=== PATIENT | female | born 1965 | race Caucasian/White ===

== ENCOUNTER 2016-10-09 03:23 | Inpatient (IN) | payer BC, MEDICAID, OTHER ==
[2016-10-09] MEDS ORDERED: Sodium Chloride 0.9% 1,000 ML IV STA ×2 (03:33→06:23)
[2016-10-09] MEDS ORDERED: Iohexol 240 (50 ml) PO ONE (03:42)
--- NOTE | 2016-10-09 04:10 | ED PDOC ---
HPI: Abdomen Time Seen by Provider: 10/09/16 03:26 Chief Complaint (Nursing): GI Problem Chief Complaint (Provider): GI Problem History Per: Patient History/Exam Limitations: no limitations Onset/Duration Of Symptoms: Hrs Current Symptoms Are (Timing): Still Present Associated Symptoms: Nausea, Vomiting Additional History Per: Patient Additional Complaint(s): Iman Gamez is a 51 year old female with a past medical history of diabetes, hypertension and a past surgical history of and back surgery who presents to the ED with a chief complaint of nausea onset x2 hours, vomiting, all recurrent and intermittent for the past week. Denies any fever, cough or SOB but reports findings of blood in vomit; bright red. Patient reports she decided not to follow up with the doctor because she thought she had a stomach virus. Past Medical History Reviewed: Historical Data, Nursing Documentation, Vital Signs Vital Signs: Last Vital Signs Temp 99.4 F 10/12/16 23:46 Pulse 94 H 10/12/16 23:46 Resp 19 10/12/16 23:46 BP 167/83 H 10/12/16 23:46 Pulse Ox 95 10/12/16 23:46 - Medical History PMH: Diabetes, HTN Denies: HIV, Chronic Kidney Disease - Surgical History Surgical History: Back Surgery, (x 1) - Family History Family History: States: No Known Family Hx - Social History Current smoker - smoking cessation education provided: No Ex-Smoker (has not smoked in the last 12 months): No Alcohol: None Drugs: Denies - Home Medications Home Medications: Ambulatory Orders Medication Instructions Recorded Docusate [Colace] 100 mg PO BID 10/09/16 Insulin Degludec [Tresiba 20 units SC HS 10/09/16 Flextouch U-100] Insulin Lispro [Humalog Kwikpen See Protocol SC TID 10/09/16 U-100] Lisinopril [Zestril] 2.5 mg PO DAILY 10/09/16 Pregabalin [Lyrica] 100 mg PO BID 10/09/16 - Allergies Allergies/Adverse Reactions: Allergies Allergy/AdvReac Type Severity Reaction Status Date / Time No Known Allergies Allergy Verified 10/09/16 04:42 Review of Systems ROS Statement: Except As Marked, All Systems Reviewed And Found Negative Constitutional: Positive for: Weakness. Negative for: Fever Respiratory: Negative for: Cough, Shortness of Breath Gastrointestinal: Positive for: Nausea, Vomiting (10 episodes, intermittent x1 week, ), Hematemesis Neurological: Positive for: Dizziness Physical Exam - Reviewed Nursing Documentation Reviewed: Yes Vital Signs Reviewed: Yes - Physical Exam Appears: Positive for: Well, Non-toxic, No Acute Distress Head Exam: Positive for: ATRAUMATIC, NORMAL INSPECTION, NORMOCEPHALIC Skin: Positive for: Pallor Eye Exam: Positive for: Normal appearance, EOMI, PERRL ENT: Positive for: Normal ENT Inspection Neck: Positive for: Normal, Painless ROM, Supple Cardiovascular/Chest: Positive for: Tachycardia Respiratory: Positive for: Normal Breath Sounds. Negative for: Wheezing, Respiratory Distress Gastrointestinal/Abdominal: Positive for: Tenderness (Mild epigastric region) Back: Positive for: Normal Inspection Rectal: Positive for: Deferred Extremity: Positive for: Normal ROM Lymphatic: Positive for: Deferred Neurologic/Psych: Positive for: Alert, Oriented - Laboratory Results Result Diagrams: 10/12/16 09:54 10/13/16 04:00 - ECG O2 Sat by Pulse Oximetry: 94 (RA) Pulse Ox Interpretation: Normal Medical Decision Making Medical Decision Makin: Initial Impression: 51 year old female with acute nausea, vomiting diabetes and hypertension. Initial Plan: * Trial of IV fluids * Zofran * ABO/RH Type stat * Type and screen * ABD Pelvis PO & IV Contrast * EKG * CMP * Lipase * U-DIP * CBC * PTT * Prothrombin time 0639: Lab showed no clinical significant abnormalities. Patient reports persistent nausea. Patient was admitted for further treatment and diagnoses for diabetes, gastroporesis, intractable vomiting. Case referred to Dr. Silvia valentine environmental health technician. PMD's are at [facility]. Scribe Attestation: Documented by Trini Sanchez acting as a scribe for Chilango Bliss MD. Provider Scribe Attestation: All medical record entries made by the~[employer]ake[employer] at my direction and personally dictated by me. I have reviewed the chart and agree that the record accurately reflects my personal performance of the history, physical exam, medical decision making, and the department course for this patient. I have also personally directed, reviewed, and agree with the discharge instructions and disposition. Disposition - Clinical Impression Clinical Impression: Nausea & vomiting, Diabetes, Hypertension - Patient ED Disposition Is Patient to be Admitted: Yes Discussed With : Adriano Vega Counseled Patient/Family Regarding: Studies Performed, Diagnosis - Disposition Disposition Time: 06:33 Condition: FAIR - Pt Status Changed To: Hospital Disposition Of: Inpatient - Admit Certification Admit to Inpatient:: After my assessment, the patient will require hospitalization for at least two midnights. This is because of the severity of symptoms shown, intensity of services needed, and/or the medical risk in this patient being treated as an outpatient.
[2016-10-09 04:15] LABS: BASO % 0.6 % (0.0-2.0); EOS # 0.1 K/uL (0.0-0.7); EOS % 2.3 % (0.0-4.0); HEMOGLOBIN 9.2 g/dL (12.0-16.0); LYMPH # 0.7 K/uL (1.0-4.3); LYMPH % 16.1 % (20.0-40.0); MEAN CELL VOLUME 83.4 fl (81.0-99.0); MEAN CORPUSCULAR HEMOGLOBIN 28.9 pg (27.0-31.0); MEAN CORPUSCULAR HGB CONC 34.6 g/dL (33.0-37.0); MEAN PLATELET VOLUME 7.9 fl (7.2-11.7); MONO # 0.4 K/uL (0.0-0.8); MONO % 9.8 % (0.0-10.0); NEUT # 3.2 K/uL (1.8-7.0); NEUT % 71.2 % (50.0-75.0); RBC 3.2 Mil/uL (3.80-5.20); RED CELL DISTRIBUTION WIDTH 13.9 % (11.5-14.5); WHITE BLOOD COUNT 4.4 K/uL (4.8-10.8)
[2016-10-09 04:19] LABS: ALBUMIN 3.1 g/dL (3.5-5.0)
[2016-10-09] MEDS ORDERED: Iohexol 240 (50 ml) ONE (04:20)
[2016-10-09 04:22] LABS: ALB/GLOB RATIO 0.9 (1.0-2.1); AST/SGOT 20 U/L (14-36); BLOOD UREA NITROGEN 25 mg/dl (7-17); GFR AFRICAN-AMERICAN > 60; GFR NON-AFRICAN AMERICAN > 60
[2016-10-09 04:23] LABS: ALT/SGPT 19 U/L (9-52); CALCIUM 8.1 mg/dL (8.4-10.2); LIPASE 109 U/L (23-300)
[2016-10-09 05:37] LABS: INR 1.09 (0.92-1.08); PARTIAL THROMBOPLASTIN TIME 27.5 SECONDS (23.3-32.5); PROTHROMBIN TIME 11.3 SECONDS (9.6-11.2)
[2016-10-09] MEDS ORDERED: Glucagon Recombinant 1 mg Inj IM PRN (06:26)
[2016-10-09] MEDS ORDERED: Dextrose 50% SYRINGE Inj (50 ml) IV PRN (06:26)
[2016-10-09] MEDS ORDERED: Sodium Chloride 0.9% 50 ML IV ONE (07:03)
[2016-10-09] MEDS ORDERED: Iohexol 300 100 ML IJ ONE (07:03)
[2016-10-09] MEDS: Insulin Regular 100 units/ml SC SCH ×5 (07:30→21:21)
--- NOTE | 2016-10-09 16:06 | RAD ---
HISTORY: admit COMPARISON: No prior. FINDINGS: LUNGS: Bilateral pulmonary infiltrates. PLEURA: Bilateral pleural effusion. CARDIOVASCULAR: Normal. OSSEOUS STRUCTURES: No significant abnormalities. VISUALIZED UPPER ABDOMEN: Normal. OTHER FINDINGS: None. IMPRESSION: Bilateral infiltrates and effusions compatible with CHF.
[2016-10-09] MEDS ORDERED: Sodium Chloride 0.9% 1,000 ML IV SCH (16:30)
--- NOTE | 2016-10-09 16:44 | CT ---
PROCEDURE: CT Abdomen and Pelvis with contrast HISTORY: abd pain COMPARISON: None. TECHNIQUE: Contrast dose: 100 cc Omnipaque 300 Radiation dose: Total exam DLP = 668 mGy-cm. This CT exam was performed using one or more of the following dose reduction techniques: Automated exposure control, adjustment of the mA and/or kV according to patient size, and/or use of iterative reconstruction technique. FINDINGS: LOWER THORAX: Moderate bilateral pleural effusions with compressive atelectasis. LIVER: Unremarkable. No gross lesion or ductal dilatation. GALLBLADDER AND BILE DUCTS: Unremarkable. PANCREAS: Unremarkable. No gross lesion or ductal dilatation. SPLEEN: Unremarkable. ADRENALS: Unremarkable. No mass. KIDNEYS AND URETERS: Unremarkable. No hydronephrosis. No solid mass. VASCULATURE: Unremarkable. No aortic aneurysm. BOWEL: Unremarkable. No obstruction. No gross mural thickening. APPENDIX: Normal appendix. PERITONEUM: Small amount of ascites. LYMPH NODES: Unremarkable. No enlarged lymph nodes. BLADDER: Unremarkable. REPRODUCTIVE: 4 centimeter right adnexal rounded structure with calcifications which may represent an exophytic fibroid or a complex right ovarian lesion. 3 centimeter left adnexal cyst.. BONES: No acute fracture. OTHER FINDINGS: None. IMPRESSION: 4 centimeter right adnexal rounded structure with calcifications which may represent an exophytic fibroid or a complex right ovarian lesion. 3 centimeter left adnexal cyst.. moderate bilateral pleural effusions and compressive atelectasis. Minimal ascites.
--- NOTE | 2016-10-09 17:26 | CP.PCM.HP ---
History of Present Illness - History of Present Illness History of Present Illness: CC:Nausea and Vomiting, and Fall History of Present Illness: Iman Gamez is a 51 year old female with a past medical history of diabetes, hypertension and a past surgical history of and back surgery who presents to the ED with a chief complaint of nausea onset x2 hours, vomiting, all recurrent and intermittent for the past week. Denies any fever, cough or SOB but reports findings of blood in vomit; bright red. Patient reports she decided not to follow up with the doctor because she thought she had a stomach virus H/O Dyspnea with minimal Exertionand Leg swelling. +Orthopnea no PND. Present on Admission - Present on Admission Any Indicators Present on Admission: No History of DVT/PE: No History of Uncontrolled Diabetes: Yes Urinary Catheter: No Decubitus Ulcer Present: No Review of Systems - Review of Systems All systems: reviewed and no additional remarkable complaints except - Cardiovascular Cardiovascular: Dyspnea on Exertion, Edema - Gastrointestinal Gastrointestinal: As Per HPI Past Patient History - Infectious Disease Hx of Infectious Diseases: None - Past Medical History & Family History Past Medical History?: No Past Family History: Reviewed and not pertinent - Past Social History Smoking Status: Never Smoked Alcohol: Social Drugs: Denies - CARDIAC Hx Cardiac Disorders: Yes - PULMONARY Hx Respiratory Disorders: No - NEUROLOGICAL Hx Neurological Disorder: No - HEENT Hx HEENT Problems: No - RENAL Hx Chronic Kidney Disease: No - ENDOCRINE/METABOLIC Hx Endocrine Disorders: Yes Hx Diabetes Mellitus Type 2: Yes - HEMATOLOGICAL/ONCOLOGICAL Hx Human Immunodeficiency Virus (HIV): No - MUSCULOSKELETAL/RHEUMATOLOGICAL Hx Back Pain: Yes Hx Falls: No - PSYCHIATRIC Hx Substance Use: No - SURGICAL HISTORY Hx Surgeries: Yes Hx Section: Yes Hx Musculoskeletal Surgery: Yes (Back Surgery) - ANESTHESIA Hx Anesthesia: Yes Hx Anesthesia Reactions: No Meds Allergies/Adverse Reactions: Allergies Allergy/AdvReac Type Severity Reaction Status Date / Time No Known Allergies Allergy Verified 10/09/16 04:42 Physical Exam - Constitutional Appears: Well, No Acute Distress - Head Exam Head Exam: ATRAUMATIC, NORMAL INSPECTION, NORMOCEPHALIC - Eye Exam Eye Exam: EOMI, Normal appearance, PERRL Pupil Exam: NORMAL ACCOMODATION, PERRL - ENT Exam ENT Exam: Mucous Membranes Dry - Neck Exam Neck exam: Positive for: Full Rom, Normal Inspection - Respiratory Exam Respiratory Exam: Clear to Auscultation Bilateral, NORMAL BREATHING PATTERN - Cardiovascular Exam Cardiovascular Exam: REGULAR RHYTHM, +S1, +S2 - GI/Abdominal Exam GI & Abdominal Exam: Normal Bowel Sounds, Soft. absent: Tenderness - Extremities Exam Extremities exam: Positive for: full ROM, normal capillary refill, normal inspection - Back Exam Back exam: NORMAL INSPECTION. absent: CVA tenderness (L), CVA tenderness (R) - Neurological Exam Neurological exam: Alert, CN II-XII Intact, Normal Gait, Oriented x3, Reflexes Normal - Psychiatric Exam Psychiatric exam: Normal Affect, Normal Mood - Skin Skin Exam: Dry, Intact, Normal Color, Warm Results - Vital Signs Recent Vital Signs: Last Vital Signs Temp 98.3 F 10/09/16 16:02 Pulse 88 10/09/16 16:02 Resp 18 10/09/16 16:02 BP 159/82 H 10/09/16 16:02 Pulse Ox 92 L 10/09/16 16:02 - Labs Result Diagrams: 10/12/16 09:54 10/13/16 04:00 - EKG Data EKG shows normal: Sinus rhythm, QRS complexes, ST-T waves Rate: Normal - Imaging and Cardiology Chest x-ray Status: Report reviewed by me Additional comment: IMPRESSION: Bilateral infiltrates and effusions compatible with CHF. CT scan - pelvis Status: Report reviewed by me Additional comment: IMPRESSION: 4 centimeter right adnexal rounded structure with calcifications which may represent an exophytic fibroid or a complex right ovarian lesion. 3 centimeter left adnexal cyst.. moderate bilateral pleural effusions and compressive atelectasis. Minimal ascites. 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
[2016-10-09] MEDS: CIPROFLOXACIN 0.3% OD SCH ×2 (17:42→21:28)
[2016-10-09] MEDS: OPTH OD SCH ×2 (17:42→21:28)
[2016-10-09] MEDS: DUREZOL 0.05% OD SCH ×2 (17:43→21:23)
[2016-10-09 18:46] LABS: B-TYPE NATRIURETIC PEPTIDE 8580 pg/ml (0-900)
[2016-10-10] MEDS: Insulin Regular 100 units/ml SC SCH ×4 (06:56→21:46)
[2016-10-10] MEDS: OPTH OD SCH ×4 (08:18→21:45)
[2016-10-10] MEDS: CIPROFLOXACIN 0.3% OD SCH ×4 (08:18→21:45)
[2016-10-10] MEDS: DUREZOL 0.05% OD SCH ×4 (08:19→21:40)
--- NOTE | 2016-10-10 08:49 | CARD ---
APPROVED REPORT EKG Measurement Heart [id number] <Conclusion> Normal sinus rhythm Low voltage QRS Cannot rule out Anterior infarct, age undetermined Abnormal ECG
[2016-10-10] MEDS ORDERED: Moxifloxacin IV 400mg/250ml NS 400 MG/250 ML BAG IVPB SCH (09:45)
[2016-10-10 10:29] LABS: ALT/SGPT 26 U/L (9-52); AST/SGOT 19 U/L (14-36); BLOOD UREA NITROGEN 21 mg/dl (7-17); CALCIUM 7.9 mg/dL (8.4-10.2); GFR AFRICAN-AMERICAN > 60; GFR NON-AFRICAN AMERICAN 58; HEMOGLOBIN 8.4 g/dL (12.0-16.0); MEAN CELL VOLUME 84.1 fl (81.0-99.0); MEAN CORPUSCULAR HEMOGLOBIN 28.8 pg (27.0-31.0); MEAN CORPUSCULAR HGB CONC 34.2 g/dL (33.0-37.0); RBC 2.9 Mil/uL (3.80-5.20); RED CELL DISTRIBUTION WIDTH 14.4 % (11.5-14.5); WHITE BLOOD COUNT 3.5 K/uL (4.8-10.8)
[2016-10-10 10:41] LABS: B-TYPE NATRIURETIC PEPTIDE 6960 pg/ml (0-900)
[2016-10-10] MEDS: levoFLOXacin 500 mg in D5W 500 MG/100 ML BAG IVPB SCH (12:47)
--- NOTE | 2016-10-10 16:50 | CARD ---
APPROVED REPORT EXAM: Two-dimensional and M-mode echocardiogram with Doppler and color Doppler. Other Information Quality : GoodRhythm : NSR INDICATION Congestive Heart Failure 2D DIMENSIONS IVSd1.12 (0.7-1.1cm)LVDd4.54 (3.9-5.9cm) LVOT Diameter2.19 (1.8-2.4cm)PWd1.30 (0.7-1.1cm) IVSs1.18 (0.8-1.2cm)LVDs3.32 (2.5-4.0cm) FS (%) 26.9 %PWs1.73 (0.8-1.2cm) LVEF (%)50.0 (>50%) M-Mode DIMENSIONS Left Atrium (MM)4.26 (2.5-4.0cm)IVSd1.36 (0.7-1.1cm) Aortic Root3.31 (2.2-3.7cm)LVDd5.22 (4.0-5.6cm) Aortic Cusp Exc.2.21 (1.5-2.0cm)PWd1.18 (0.7-1.1cm) IVSs1.58 cmFS (%) 32 % LVDs3.57 (2.0-3.8cm)PWs1.80 cm Mitral Valve MV E Qkoaykzc71.3cm/sMV DECEL [id number] A Leamfnso28.7cm/s MV XSF18wuD/A ratio1.4MVA (PHT)4.21cm2 TDI Lateral E' Peak V11.08cm/sMedial E' Peak V6.60cm/sE/Lateral E'8.7 E/Medial E'14.6 Pulmonary Valve PV Peak Wsfjpdyd46.8cm/s LEFT VENTRICLE The left ventricle is normal size. There is borderline concentric left ventricular hypertrophy. Left ventricle systolic function is borderline. There is normal LV segmental wall motion. The left ventricular diastolic function is normal. RIGHT VENTRICLE The right ventricle is normal size. There is normal right ventricular wall thickness. The right ventricular systolic function is normal. ATRIA The left atrium is borderline dilated. The right atrium size is normal. AORTIC VALVE The aortic valve is not well visualized. No aortic regurgitation is present. There is no aortic valvular stenosis. MITRAL VALVE The mitral valve is normal in structure and function. There is no mitral valve stenosis. There is no mitral valve regurgitation noted. TRICUSPID VALVE The tricuspid valve is normal in structure and function. There is no tricuspid valve regurgitation noted. PULMONIC VALVE The pulmonary valve is normal in structure and function. There is no pulmonic valvular regurgitation. GREAT VESSELS The aortic root is normal in size. The IVC was not visualized. PERICARDIAL EFFUSION There is a small circumferential pericardial effusion. There is large left pleural effusion. <Conclusion> The left ventricle is normal size. There is borderline concentric left ventricular hypertrophy. Left ventricle systolic function is borderline. There is normal LV segmental wall motion. The left ventricular diastolic function is normal. There is large left pleural effusion.
--- NOTE | 2016-10-10 21:31 | CP.PCM.PN ---
Subjective - Date & Time of Evaluation Date of Evaluation: 10/10/16 Time of Evaluation: 18:50 - Subjective Subjective: Seen and examined at the bed side.still C/P Nausea. Unable to lie down due to orthopnea. ACS ruled out. Objective - Vital Signs/Intake and Output Vital Signs (last 24 hours): Temp Pulse Resp BP Pulse Ox 98.5 F 94 H 20 170/81 H 96 10/10/16 19:07 10/10/16 19:07 10/10/16 19:07 10/10/16 19:07 10/10/16 19:07 - Medications Medications: Current Medications Acetaminophen (Tylenol 325mg Tab) 650 mg PO Q4 PRN PRN Reason: Headache Last Admin: 10/10/16 10:12 Dose: 650 mg Carvedilol (Coreg) 6.25 mg PO Q12@0400,1600 [facility] Dextrose (Dextrose 50% Inj) 0 ml IV STAT PRN; Protocol PRN Reason: Hyglycemia Protocol Dextrose (Glutose 15) 0 gm PO ONCE PRN; Protocol PRN Reason: Hypoglycemia Protocol Docusate Sodium (Colace) 100 mg PO BID [facility] Last Admin: 10/10/16 16:13 Dose: 100 mg Furosemide (Lasix) 40 mg IVP DAILY [facility] Last Admin: 10/10/16 10:21 Dose: 40 mg Glucagon (Glucagen Diagnostic Kit) 0 mg IM STAT PRN; Protocol PRN Reason: Hypoglycemia Protocol Home Med (Patient's Own Medication) 1 unit OD QID [facility] Last Admin: 10/10/16 16:12 Dose: 1 unit Home Med (Patient's Own Medication) 1 unit OD QID [facility] Last Admin: 10/10/16 16:12 Dose: 1 unit Levofloxacin/Dextrose (Levaquin 500mg) 500 mg in 100 mls @ 100 mls/hr IVPB DAILY [facility] Last Admin: 10/10/16 12:47 Dose: 100 mls/hr Insulin Human Regular (Humulin R) 0 units SC ACHS [facility] PRN Reason: Protocol Last Admin: 10/10/16 16:11 Dose: 2 unit Lisinopril (Zestril) 2.5 mg PO DAILY [facility] Last Admin: 10/10/16 08:19 Dose: 2.5 mg Ondansetron HCl (Zofran Inj) 4 mg IV Q6 PRN PRN Reason: Nausea/Vomiting Pantoprazole Sodium (Protonix Inj) 40 mg IV Q12 [facility] Last Admin: 10/10/16 08:19 Dose: 40 mg Pregabalin (Lyrica) 100 mg PO BID [facility] Last Admin: 10/10/16 16:58 Dose: 100 mg - Labs Labs: 10/10/16 10:00 10/10/16 10:00 PT 11.3 SECONDS (9.6-11.2) H 10/09/16 04:12 INR 1.09 (0.92-1.08) H 10/09/16 04:12 APTT 27.5 SECONDS (23.3-32.5) 10/09/16 04:12 - Constitutional Appears: Well, No Acute Distress - Head Exam Head Exam: ATRAUMATIC, NORMAL INSPECTION, NORMOCEPHALIC - Eye Exam Eye Exam: EOMI, Normal appearance, PERRL Pupil Exam: NORMAL ACCOMODATION, PERRL - ENT Exam ENT Exam: Mucous Membranes Moist, Normal Exam - Neck Exam Neck Exam: Full ROM, Normal Inspection. absent: Lymphadenopathy - Respiratory Exam Respiratory Exam: Clear to Ausculation Bilateral, NORMAL BREATHING PATTERN - Cardiovascular Exam Cardiovascular Exam: REGULAR RHYTHM, +S1, +S2. absent: Murmur - GI/Abdominal Exam GI & Abdominal Exam: Soft, Normal Bowel Sounds. absent: Tenderness - Extremities Exam Extremities Exam: Full ROM, Normal Capillary Refill, Normal Inspection. 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
[2016-10-10] MEDS ORDERED: Enalaprilat 2.5 MG/2 ML IVP STA (22:07)
--- NOTE | 2016-10-11 02:10 | CARD ---
APPROVED REPORT EKG Measurement Heart [id number] <Conclusion> Normal sinus rhythm Anterior infarct, age undetermined Abnormal ECG
[2016-10-11] MEDS: Insulin Regular 100 units/ml SC SCH ×4 (07:01→21:57)
--- NOTE | 2016-10-11 08:45 | CP.PCM.CON ---
History of Present Illness - History of Present Illness History of Present Illness: Full Note Dictated CHF (LV, Syst, AC on CHR) DM(II)/HTN S/P Back Sx for injury following a fall Echo reviewed Lipid [zulma See Rx Past Patient History - Past Medical History & Family History Past Medical History?: No - Past Social History Smoking Status: Never Smoked - CARDIAC Hx Cardiac Disorders: Yes - PULMONARY Hx Respiratory Disorders: No - NEUROLOGICAL Hx Neurological Disorder: No - HEENT Hx HEENT Problems: No - RENAL Hx Chronic Kidney Disease: No - ENDOCRINE/METABOLIC Hx Endocrine Disorders: Yes - HEMATOLOGICAL/ONCOLOGICAL Hx Human Immunodeficiency Virus (HIV): No - MUSCULOSKELETAL/RHEUMATOLOGICAL Hx Falls: No - PSYCHIATRIC Hx Substance Use: No - SURGICAL HISTORY Hx Surgeries: Yes Hx Section: Yes - ANESTHESIA Hx Anesthesia: Yes Meds Allergies/Adverse Reactions: Allergies Allergy/AdvReac Type Severity Reaction Status Date / Time No Known Allergies Allergy Verified 10/09/16 04:42 - Medications Medications: Current Medications Acetaminophen (Tylenol 325mg Tab) 650 mg PO Q4 PRN PRN Reason: Headache Last Admin: 10/10/16 10:12 Dose: 650 mg Carvedilol (Coreg) 6.25 mg PO Q12@0400,1600 [facility] Last Admin: 10/11/16 04:29 Dose: 6.25 mg Dextrose (Dextrose 50% Inj) 0 ml IV STAT PRN; Protocol PRN Reason: Hyglycemia Protocol Dextrose (Glutose 15) 0 gm PO ONCE PRN; Protocol PRN Reason: Hypoglycemia Protocol Docusate Sodium (Colace) 100 mg PO BID [facility] Last Admin: 10/10/16 16:13 Dose: 100 mg Furosemide (Lasix) 40 mg IVP DAILY [facility] Last Admin: 10/10/16 10:21 Dose: 40 mg Glucagon (Glucagen Diagnostic Kit) 0 mg IM STAT PRN; Protocol PRN Reason: Hypoglycemia Protocol Home Med (Patient's Own Medication) 1 unit OD QID [facility] Last Admin: 10/10/16 21:45 Dose: 1 unit Home Med (Patient's Own Medication) 1 unit OD QID [facility] Last Admin: 10/10/16 21:40 Dose: 1 unit Levofloxacin/Dextrose (Levaquin 500mg) 500 mg in 100 mls @ 100 mls/hr IVPB DAILY [facility] Last Admin: 10/10/16 12:47 Dose: 100 mls/hr Insulin Human Regular (Humulin R) 0 units SC ACHS [facility] PRN Reason: Protocol Last Admin: 10/11/16 07:01 Dose: 3 unit Lisinopril (Zestril) 10 mg PO DAILY [facility] Ondansetron HCl (Zofran Inj) 4 mg IV Q6 PRN PRN Reason: Nausea/Vomiting Pantoprazole Sodium (Protonix Inj) 40 mg IV Q12 [facility] Last Admin: 10/10/16 21:39 Dose: 40 mg Pregabalin (Lyrica) 100 mg PO BID [facility] Last Admin: 10/10/16 16:58 Dose: 100 mg Spironolactone (Aldactone) 25 mg PO DAILY [facility] Results - Vital Signs Recent Vital Signs: Last Vital Signs Temp 98.9 F 10/11/16 08:11 Pulse 91 H 10/11/16 08:11 Resp 18 10/11/16 08:11 BP 166/82 H 10/11/16 08:11 Pulse Ox 95 10/11/16 08:11 - Labs Result Diagrams: 10/10/16 10:00 10/10/16 10:00 Labs: Laboratory Results - last 24 hr 10/10/16 10/10/16 10/10/16 10:00 10:00 12:10 WBC 3.5 L RBC 2.90 L Hgb 8.4 L Hct 24.4 L MCV 84.1 MCH 28.8 MCHC 34.2 RDW 14.4 Plt Count 137 Sodium 137 Potassium 4.2 Chloride 104 Carbon Dioxide 26 Anion Gap 12 BUN 21 H Creatinine 1.0 Est GFR ( Amer) > 60 Est GFR (Non-Af Amer) 58 POC Glucose (mg/dL) 154 H Random Glucose 116 H Calcium 7.9 L Total Bilirubin 0.4 AST 19 ALT 26 Alkaline Phosphatase 66 Troponin I < 0.0120 NT-Pro-B Natriuret Pep 6960 H Total Protein 6.0 L Albumin 3.0 L Globulin 3.0 Albumin/Globulin Ratio 1.0 10/10/16 10/10/16 10/11/16 16:03 21:21 05:13 WBC RBC Hgb Hct MCV MCH MCHC RDW Plt Count Sodium Potassium Chloride Carbon Dioxide Anion Gap BUN Creatinine Est GFR ( Amer) Est GFR (Non-Af Amer) POC Glucose (mg/dL) 171 H 140 H 212 H Random Glucose Calcium Total Bilirubin AST ALT Alkaline Phosphatase Troponin I NT-Pro-B Natriuret Pep Total Protein Albumin Globulin Albumin/Globulin Ratio
--- NOTE | 2016-10-11 09:26 | CON ---
DATE: 10/11/2016 She is a 51-year-old female admitted under Dr. Vega in room 401, bed 2. This 51-year-old female found out that she was a diabetic when she was hospitalized following a fall and was started on insulin therapy. She was not aware that she was hypertensive as well, but she has been taking an MAGALY inhibitor. She has never been a smoker and has never experienced any chest pain or myocardial infarction. Recently began to notice shortness of breath with minimal exertion and nevaeh cribes an episode of orthopnea approximately 4 days back. She admits to salt excess, has no other si gnificant past or family history. PHYSICAL EXAMINATION: GENERAL: The patient is a young female who is alert, awake, coherent. VITAL SIGNS: Afebrile, breathes comfortably propped up in a bed at approximately 16 breaths per ralf te, has a heart rate of 78 beats per minute, regular, and a blood pressure of 160/80 mmHg. Her jugul ar venous pressure was not elevated. EXTREMITIES: There was minimal pitting edema of both lower extremities. The pedal pulses were well felt. NECK: There were carotid bruit, particularly on the left side. A systolic bruit audible on the left side. HEART: The apex was not palpable. The first and second heart sounds were normal. No murmur or gall op were audible. LUNGS: The percussion note was dull at left base with poor air entry indicative of a left pleural ef fusion. Her electrocardiogram showed sinus rhythm with nonspecific ST-T changes. An echocardiogram done yest erday shows a large left pleural effusion. The left ventricular systolic function was mildly depress ed with an ejection fraction in the range of 35%-40%. There was also evidence of mitral regurgitatio n with an enlarged left atrium. Tissue Doppler recording revealed evidence of left ventricular diast olic dysfunction. LABORATORY DATA: Noted. The patient shows evidence of normocytic normochromic anemia. Her retic co unt as well as iron studies and serum B12 level and RBC folate would be evaluated. IMPRESSION: At this time is congestive heart failure secondary to left ventricular systolic dysfunct ion, possibly due to diabetes and hypertension. The possibility of coronary artery disease in this s etting cannot be excluded. I have requested a lipid profile. The patient is on appropriate treatmen t for congestive heart failure consisting of a loop diuretic with MAGALY inhibitor, spironolactone, and a beta arthur. I will review her results once the lab tests come back. Riley Grimaldo MD cc: 23 TT: 10/11/2016 09:25:08 Confirmation # [id number] Dictation # [id number]
[2016-10-11] MEDS: levoFLOXacin 500 mg in D5W 500 MG/100 ML BAG IVPB SCH (09:35)
[2016-10-11] MEDS: CIPROFLOXACIN 0.3% OD SCH ×4 (09:35→21:57)
[2016-10-11] MEDS: OPTH OD SCH ×4 (09:35→21:57)
[2016-10-11] MEDS: DUREZOL 0.05% OD SCH ×4 (09:36→21:57)
[2016-10-11 10:10] LABS: IRON 37 ug/dL (37-170)
[2016-10-11 10:19] LABS: % IRON SATURATION 13 % (20-55); TOTAL IRON BINDING CAPACITY 296 ug/dL (250-450)
--- NOTE | 2016-10-11 11:19 | CT ---
PROCEDURE: CT Chest without contrast HISTORY: Large Pleural effussion COMPARISON: * 10/09/2016 single-view chest. * 10/09/2016 CT abdomen and pelvis. Summary of findings on the comparison examination: Bilateral pleural effusions and compressive atelectasis. TECHNIQUE: Contiguous axial images were obtained through the chest without intravenous contrast enhancement. Sagittal and coronal reconstructions were performed. Radiation dose (DLP): 684.73 mGy-cm. This CT exam was performed using one or more of the following dose reduction techniques: Automated exposure control, adjustment of the mA and/or kV according to patient size, and/or use of iterative reconstruction technique. FINDINGS: LUNGS: Lower lobe consolidative changes, compressive atelectasis related to bilateral pleural effusions. MEDIASTINUM: Unremarkable thoracic aorta. No aneurysm. Normal sized heart. Main pulmonary artery unremarkable. No vascular congestion. No lymphadenopathy. PLEURA: Moderate pleural effusions right larger than left. BONES: No fracture. No destructive lesion. UPPER ABDOMEN: Grossly unremarkable. OTHER FINDINGS: None. IMPRESSION: Compressive atelectasis lower lobe distribution related to moderate size bilateral pleural effusions right larger than left.
[2016-10-12 07:05] LABS: ALBUMIN 3.1 g/dL (3.5-5.0); ALT/SGPT 19 U/L (9-52); AST/SGOT 24 U/L (14-36); BLOOD UREA NITROGEN 26 mg/dl (7-17); CALCIUM 8.3 mg/dL (8.4-10.2); GFR AFRICAN-AMERICAN > 60; GFR NON-AFRICAN AMERICAN 52; HDL CHOLESTEROL 32 MG/DL (30-70)
[2016-10-12 07:16] LABS: LDL CHOLESTEROL 80 mg/dL (0-129)
[2016-10-12 07:35] LABS: FERRITIN 35.6 ng/mL
[2016-10-12] MEDS: Insulin Regular 100 units/ml SC SCH ×4 (07:43→22:22)
[2016-10-12] MEDS ORDERED: Pantoprazole 40 mg EC Tab PO SCH (09:00)
[2016-10-12] MEDS: CIPROFLOXACIN 0.3% OD SCH ×4 (09:44→21:28)
[2016-10-12] MEDS: OPTH OD SCH ×4 (09:44→21:28)
[2016-10-12] MEDS: DUREZOL 0.05% OD SCH ×4 (09:45→21:28)
[2016-10-12] MEDS: levoFLOXacin 500 mg in D5W 500 MG/100 ML BAG IVPB SCH (09:48)
[2016-10-12 10:01] LABS: MEAN CELL VOLUME 83.3 fl (81.0-99.0); MEAN CORPUSCULAR HEMOGLOBIN 28.7 pg (27.0-31.0); MEAN CORPUSCULAR HGB CONC 34.4 g/dL (33.0-37.0); RBC 3.13 Mil/uL (3.80-5.20); RED CELL DISTRIBUTION WIDTH 14.3 % (11.5-14.5); WHITE BLOOD COUNT 4.3 K/uL (4.8-10.8)
--- NOTE | 2016-10-12 10:08 | CP.PCM.PN ---
Subjective - Date & Time of Evaluation Date of Evaluation: 10/12/16 Time of Evaluation: 09:30 - Subjective Subjective: Diuresing well and has much relief as far as BLOOD is concerned Peddal OEDEMA MUCH LESS BP 158/84 mm Hg HR 78 BPM, reg Labs show mild decrease in GFR K+ normal ACEI dose increased Rec count appropriately increased Ferritin normal/ B12 normal Iron studies show adequate levels CMP for tomorrow Objective - Vital Signs/Intake and Output Vital Signs (last 24 hours): Temp Pulse Resp BP Pulse Ox 98.3 F 81 18 161/78 H 97 10/12/16 08:32 10/12/16 09:45 10/12/16 08:32 10/12/16 09:45 10/12/16 08:32 - Medications Medications: Current Medications Acetaminophen (Tylenol 325mg Tab) 650 mg PO Q4 PRN PRN Reason: Headache Last Admin: 10/12/16 06:12 Dose: 650 mg Carvedilol (Coreg) 12.5 mg PO Q12 [facility] Dextrose (Dextrose 50% Inj) 0 ml IV STAT PRN; Protocol PRN Reason: Hyglycemia Protocol Dextrose (Glutose 15) 0 gm PO ONCE PRN; Protocol PRN Reason: Hypoglycemia Protocol Docusate Sodium (Colace) 100 mg PO BID [facility] Last Admin: 10/12/16 09:42 Dose: 100 mg Furosemide (Lasix) 40 mg IVP DAILY [facility] Last Admin: 10/12/16 09:42 Dose: 40 mg Glucagon (Glucagen Diagnostic Kit) 0 mg IM STAT PRN; Protocol PRN Reason: Hypoglycemia Protocol Home Med (Patient's Own Medication) 1 unit OD QID [facility] Last Admin: 10/12/16 09:44 Dose: 1 unit Home Med (Patient's Own Medication) 1 unit OD QID [facility] Last Admin: 10/12/16 09:45 Dose: 1 unit Levofloxacin/Dextrose (Levaquin 500mg) 500 mg in 100 mls @ 100 mls/hr IVPB DAILY [facility] Last Admin: 10/12/16 09:48 Dose: 100 mls/hr Insulin Human Regular (Humulin R) 0 units SC ACHS [facility] PRN Reason: Protocol Last Admin: 10/12/16 07:43 Dose: 2 unit Lisinopril (Zestril) 20 mg PO DAILY [facility] Ondansetron HCl (Zofran Inj) 4 mg IV Q6 PRN PRN Reason: Nausea/Vomiting Pantoprazole Sodium (Protonix Ec Tab) 40 mg PO DAILY [facility] Last Admin: 10/12/16 09:45 Dose: 40 mg Pregabalin (Lyrica) 100 mg PO BID [facility] Last Admin: 10/12/16 09:48 Dose: 100 mg Spironolactone (Aldactone) 50 mg PO DAILY [facility] - Labs Labs: 10/10/16 10:00 10/12/16 06:00 PT 11.3 SECONDS (9.6-11.2) H 10/09/16 04:12 INR 1.09 (0.92-1.08) H 10/09/16 04:12 APTT 27.5 SECONDS (23.3-32.5) 10/09/16 04:12
--- NOTE | 2016-10-12 11:02 | CP.PCM.PN ---
Subjective - Date & Time of Evaluation Date of Evaluation: 10/11/16 Time of Evaluation: 18:30 - Subjective Subjective: Seen and examined at the bed side. states feeling better today. Objective - Vital Signs/Intake and Output Vital Signs (last 24 hours): Temp Pulse Resp BP Pulse Ox 98.3 F 81 18 161/78 H 97 10/12/16 08:32 10/12/16 09:45 10/12/16 08:32 10/12/16 09:45 10/12/16 08:32 - Medications Medications: Current Medications Acetaminophen (Tylenol 325mg Tab) 650 mg PO Q4 PRN PRN Reason: Headache Last Admin: 10/12/16 06:12 Dose: 650 mg Carvedilol (Coreg) 12.5 mg PO Q12 [facility] Dextrose (Dextrose 50% Inj) 0 ml IV STAT PRN; Protocol PRN Reason: Hyglycemia Protocol Dextrose (Glutose 15) 0 gm PO ONCE PRN; Protocol PRN Reason: Hypoglycemia Protocol Docusate Sodium (Colace) 100 mg PO BID [facility] Last Admin: 10/12/16 09:42 Dose: 100 mg Furosemide (Lasix) 40 mg IVP DAILY [facility] Last Admin: 10/12/16 09:42 Dose: 40 mg Glucagon (Glucagen Diagnostic Kit) 0 mg IM STAT PRN; Protocol PRN Reason: Hypoglycemia Protocol Home Med (Patient's Own Medication) 1 unit OD QID [facility] Last Admin: 10/12/16 09:44 Dose: 1 unit Home Med (Patient's Own Medication) 1 unit OD QID [facility] Last Admin: 10/12/16 09:45 Dose: 1 unit Levofloxacin/Dextrose (Levaquin 500mg) 500 mg in 100 mls @ 100 mls/hr IVPB DAILY [facility] Last Admin: 10/12/16 09:48 Dose: 100 mls/hr Insulin Human Regular (Humulin R) 0 units SC ACHS [facility] PRN Reason: Protocol Last Admin: 10/12/16 07:43 Dose: 2 unit Lisinopril (Zestril) 20 mg PO DAILY [facility] Ondansetron HCl (Zofran Inj) 4 mg IV Q6 PRN PRN Reason: Nausea/Vomiting Pantoprazole Sodium (Protonix Ec Tab) 40 mg PO DAILY [facility] Last Admin: 10/12/16 09:45 Dose: 40 mg Pregabalin (Lyrica) 100 mg PO BID [facility] Last Admin: 10/12/16 09:48 Dose: 100 mg Spironolactone (Aldactone) 50 mg PO DAILY [facility] - Labs Labs: 10/12/16 09:54 10/12/16 06:00 PT 11.3 SECONDS (9.6-11.2) H 10/09/16 04:12 INR 1.09 (0.92-1.08) H 10/09/16 04:12 APTT 27.5 SECONDS (23.3-32.5) 10/09/16 04:12 - Constitutional Appears: Well, No Acute Distress - Head Exam Head Exam: ATRAUMATIC, NORMAL INSPECTION, NORMOCEPHALIC - Eye Exam Eye Exam: EOMI, Normal appearance, PERRL Pupil Exam: NORMAL ACCOMODATION, PERRL - ENT Exam ENT Exam: Mucous Membranes Moist, Normal Exam - Neck Exam Neck Exam: Full ROM, Normal Inspection. absent: Lymphadenopathy - Respiratory Exam Respiratory Exam: Clear to Ausculation Bilateral, NORMAL BREATHING PATTERN - Cardiovascular Exam Cardiovascular Exam: REGULAR RHYTHM, +S1, +S2. absent: Murmur - GI/Abdominal Exam GI & Abdominal Exam: Soft, Normal Bowel Sounds. absent: Tenderness - Extremities Exam Extremities Exam: Full ROM, Normal Capillary Refill, Normal Inspection. absent : Joint Swelling, Pedal Edema - Back Exam Back Exam: NORMAL INSPECTION - Neurological Exam Neurological Exam: Alert, Awake, CN II-XII Intact, Normal Gait, Oriented x3 - Psychiatric Exam Psychiatric exam: Normal Affect, Normal Mood - Skin Skin Exam: Dry, Intact, Normal Color, Warm Assessment and Plan (1) Intractable vomiting Assessment & Plan: Gastroparesis due to DM Complication IV Reglan PRN Control DM Protonix Status: Acute Priority: High (2) CHF (congestive heart failure) Assessment and Plan: New onset R/O ACS Serial trop and EKG IV LAsix Oxygen Echo Manager Production Consult Status: Acute (3) Back pain Assessment and Plan: S/P Surgery and Screws and Plates Status: Chronic (4) Hypertension Assessment and Plan: Continue ACEI Status: Acute (5) Diabetes mellitus Assessment and Plan: Continue Home medication Accu-check with Coverage HgA1C Lipid Profile Status: Acute
[2016-10-12 17:46] LABS: FOLATE 19.6 ng/mL
--- NOTE | 2016-10-12 23:16 | CP.PCM.PN ---
Subjective - Date & Time of Evaluation Date of Evaluation: 10/12/16 Time of Evaluation: 10:00 - Subjective Subjective: Seen and Examined at the bed side. Feeling Better. PT/OT eval and ADP for D/C Objective - Vital Signs/Intake and Output Vital Signs (last 24 hours): Temp Pulse Resp BP Pulse Ox 99.6 F 88 20 171/79 H 94 L 10/12/16 18:49 10/12/16 21:25 10/12/16 18:49 10/12/16 21:25 10/12/16 18:49 Intake and Output: 10/12/16 10/13/16 18:59 06:59 Intake Total 900 Balance 900 - Medications Medications: Current Medications Acetaminophen (Tylenol 325mg Tab) 650 mg PO Q4 PRN PRN Reason: Headache Last Admin: 10/12/16 06:12 Dose: 650 mg Carvedilol (Coreg) 12.5 mg PO Q12 [facility] Last Admin: 10/12/16 21:25 Dose: 12.5 mg Dextrose (Dextrose 50% Inj) 0 ml IV STAT PRN; Protocol PRN Reason: Hyglycemia Protocol Dextrose (Glutose 15) 0 gm PO ONCE PRN; Protocol PRN Reason: Hypoglycemia Protocol Docusate Sodium (Colace) 100 mg PO BID [facility] Last Admin: 10/12/16 17:00 Dose: 100 mg Furosemide (Lasix) 40 mg IVP DAILY [facility] Last Admin: 10/12/16 09:42 Dose: 40 mg Glucagon (Glucagen Diagnostic Kit) 0 mg IM STAT PRN; Protocol PRN Reason: Hypoglycemia Protocol Home Med (Patient's Own Medication) 1 unit OD QID [facility] Last Admin: 10/12/16 21:28 Dose: 1 unit Home Med (Patient's Own Medication) 1 unit OD QID [facility] Last Admin: 10/12/16 21:28 Dose: 1 unit Levofloxacin/Dextrose (Levaquin 500mg) 500 mg in 100 mls @ 100 mls/hr IVPB DAILY [facility] Last Admin: 10/12/16 09:48 Dose: 100 mls/hr Insulin Human Regular (Humulin R) 0 units SC ACHS [facility] PRN Reason: Protocol Last Admin: 10/12/16 22:22 Dose: Not Given Lisinopril (Zestril) 20 mg PO DAILY [facility] Ondansetron HCl (Zofran Inj) 4 mg IV Q6 PRN PRN Reason: Nausea/Vomiting Pantoprazole Sodium (Protonix Ec Tab) 40 mg PO DAILY [facility] Last Admin: 10/12/16 09:45 Dose: 40 mg Pregabalin (Lyrica) 100 mg PO BID [facility] Last Admin: 10/12/16 17:03 Dose: 100 mg Spironolactone (Aldactone) 50 mg PO DAILY [facility] Last Admin: 10/12/16 10:00 Dose: Not Given - Labs Labs: 10/12/16 09:54 10/12/16 06:00 PT 11.3 SECONDS (9.6-11.2) H 10/09/16 04:12 INR 1.09 (0.92-1.08) H 10/09/16 04:12 APTT 27.5 SECONDS (23.3-32.5) 10/09/16 04:12 - Constitutional Appears: Well - Head Exam Head Exam: ATRAUMATIC, NORMAL INSPECTION, NORMOCEPHALIC - Eye Exam Eye Exam: EOMI, Normal appearance, PERRL Pupil Exam: NORMAL ACCOMODATION, PERRL - ENT Exam ENT Exam: Mucous Membranes Moist, Normal Exam - Neck Exam Neck Exam: Full ROM, Normal Inspection. absent: Lymphadenopathy - Respiratory Exam Respiratory Exam: Clear to Ausculation Bilateral, NORMAL BREATHING PATTERN - Cardiovascular Exam Cardiovascular Exam: REGULAR RHYTHM, +S1, +S2. absent: Murmur - GI/Abdominal Exam GI & Abdominal Exam: Soft, Normal Bowel Sounds. absent: Tenderness - Extremities Exam Extremities Exam: Full ROM, Normal Capillary Refill, Normal Inspection. absent : Joint Swelling, Pedal Edema - Back Exam Back Exam: NORMAL INSPECTION - Neurological Exam Neurological Exam: Alert, Awake, CN II-XII Intact, Normal Gait, Oriented x3 - Psychiatric Exam Psychiatric exam: Normal Affect, Normal Mood - Skin Skin Exam: Dry, Intact, Normal Color, Warm Assessment and Plan (1) Intractable vomiting Assessment & Plan: Gastroparesis due to DM Complication IV Reglan PRN Control DM Protonix Status: Acute Priority: High (2) CHF (congestive heart failure) Assessment and Plan: New onset R/O ACS IV Lasix ACEI and BB Oxygen Echo- CHF, Mostly Diastolic Shingle Packer INput appreciated Will need Elective Cardiac Cath as Status: Acute (3) Back pain Assessment and Plan: S/P Surgery and Screws and Plates Status: Chronic (4) Hypertension Assessment and Plan: Continue ACEI and BB Status: Acute (5) Diabetes mellitus Assessment and Plan: Continue Home medication Accu-check with Coverage Status: Acute
[2016-10-12 23:47] VITALS: BP 167/83; PULSE 94; RESP 19; TEMP 99.4
[2016-10-14 21:45] VITALS: O2SAT 94
--- NOTE | 2016-12-14 11:28 | CP.PCM.DIS ---
Provider - Provider Date of Admission: 10/09/16 06:17 Attending physician: Adriano Vega MD Primary care physician: Consults: Ruby Javier Time Spent in preparation of Discharge (in minutes): 15 Diagnosis - Discharge Diagnosis (1) Gastroparesis Status: Acute (2) CHF (congestive heart failure) Status: Acute (3) Hypertension Status: Acute (4) Intractable vomiting Status: Acute Priority: High (5) Back pain Status: Chronic (6) Diabetes mellitus Status: Chronic Hospital Course - Lab Results Lab Results: Most Recent Lab Values WBC 4.3 K/uL (4.8-10.8) L 10/12/16 09:54 RBC 3.13 Mil/uL (3.80-5.20) L 10/12/16 09:54 Hgb 9.0 g/dL (12.0-16.0) L 10/12/16 09:54 Hct 26.1 % (34.0-47.0) L 10/12/16 09:54 MCV 83.3 fl (81.0-99.0) 10/12/16 09:54 MCH 28.7 pg (27.0-31.0) 10/12/16 09:54 MCHC 34.4 g/dL (33.0-37.0) 10/12/16 09:54 RDW 14.3 % (11.5-14.5) 10/12/16 09:54 Plt Count 142 K/uL (130-400) 10/12/16 09:54 MPV 7.9 fl (7.2-11.7) 10/09/16 04:12 Neut % (Auto) 71.2 % (50.0-75.0) 10/09/16 04:12 Lymph % (Auto) 16.1 % (20.0-40.0) L 10/09/16 04:12 [place] % (Auto) 9.8 % (0.0-10.0) 10/09/16 04:12 Eos % (Auto) 2.3 % (0.0-4.0) 10/09/16 04:12 Baso % (Auto) 0.6 % (0.0-2.0) 10/09/16 04:12 Neut # 3.2 K/uL (1.8-7.0) 10/09/16 04:12 Lymph # 0.7 K/uL (1.0-4.3) L 10/09/16 04:12 [place] # 0.4 K/uL (0.0-0.8) 10/09/16 04:12 Eos # 0.1 K/uL (0.0-0.7) 10/09/16 04:12 Baso # 0.0 K/uL (0.0-0.2) 10/09/16 04:12 Retic Count 3.2 % (0.5-1.5) H 10/12/16 06:00 PT 11.3 SECONDS (9.6-11.2) H 10/09/16 04:12 INR 1.09 (0.92-1.08) H 10/09/16 04:12 APTT 27.5 SECONDS (23.3-32.5) 10/09/16 04:12 Sodium 136 mmol/l (132-148) 10/13/16 04:00 Potassium 4.1 MMOL/L (3.6-5.0) 10/13/16 04:00 Chloride 101 mmol/L (98-107) 10/13/16 04:00 Carbon Dioxide 27 mmol/L (22-30) 10/13/16 04:00 Anion Gap 12 (10-20) 10/13/16 04:00 BUN 32 mg/dl (7-17) H 10/13/16 04:00 Creatinine 1.2 mg/dL (0.7-1.2) 10/13/16 04:00 Est GFR ( Amer) 57 10/13/16 04:00 Est GFR (Non-Af Amer) 47 10/13/16 04:00 POC Glucose (mg/dL) 125 mg/dL (65-110) H 10/13/16 15:55 Random Glucose 169 mg/dL (65-105) H 10/13/16 04:00 Calcium 8.0 mg/dL (8.4-10.2) L 10/13/16 04:00 Iron 37 ug/dL (37-170) 10/11/16 09:47 TIBC 296 ug/dL (250-450) 10/11/16 09:47 % Saturation 13 % (20-55) L 05/16/17 09:47 Ferritin 35.6 ng/mL 10/12/16 06:00 Total Bilirubin 0.3 mg/dl (0.2-1.3) 10/13/16 04:00 AST 17 U/L (14-36) 10/13/16 04:00 ALT 25 U/L (9-52) 10/13/16 04:00 Alkaline Phosphatase 63 U/L (38-126) 10/13/16 04:00 Troponin I < 0.0120 ng/mL (0.00-0.120) 10/10/16 10:00 NT-Pro-B Natriuret Pep 6960 pg/ml (0-900) H 10/10/16 10:00 Total Protein 6.0 G/DL (6.3-8.2) L 10/13/16 04:00 Albumin 3.0 g/dL (3.5-5.0) L 10/13/16 04:00 Globulin 3.0 gm/dL (2.2-3.9) 10/13/16 04:00 Albumin/Globulin Ratio 1.0 (1.0-2.1) 10/13/16 04:00 Triglycerides 113 mg/DL (0-149) D 10/12/16 06:00 Cholesterol 156 mg/dL (0-199) 10/12/16 06:00 LDL Cholesterol Direct 80 mg/dL (0-129) 10/12/16 06:00 HDL Cholesterol 32 MG/DL (30-70) 10/12/16 06:00 Lipase 109 U/L (23-300) 10/09/16 04:12 Vitamin B12 394 pg/mL (239-931) 10/09/16 18:18 Folate 19.6 ng/mL 10/12/16 06:00 TSH 3rd Generation 3.82 mIU/ML (0.46-4.68) 10/09/16 18:18 Blood Type A POSITIVE 10/09/16 03:44 Blood Type Confirm A POSITIVE 10/09/16 05:50 Antibody Screen Negative 10/09/16 03:44 BBK History Checked No verified bt 10/09/16 03:44 Discharge Exam - Head Exam Head Exam: ATRAUMATIC, NORMAL INSPECTION, NORMOCEPHALIC - Eye Exam Eye Exam: EOMI, Normal appearance, PERRL Pupil Exam: NORMAL ACCOMODATION, PERRL - ENT Exam ENT Exam: Mucous Membranes Moist - Neck Exam Neck exam: Full Rom, Normal Inspection - Respiratory Exam Respiratory Exam: Clear to PA & Lateral, NORMAL BREATHING PATTERN - Cardiovascular Exam Cardiovascular Exam: REGULAR RHYTHM, +S1, +S2 - GI/Abdominal Exam GI & Abdominal Exam: Normal Bowel Sounds - Neurological Exam Neurological exam: Alert, CN II-XII Intact, Normal Gait, Oriented x3, Reflexes Normal - Psychiatric Exam Psychiatric exam: Normal Affect, Normal Mood - Skin Skin Exam: Dry, Intact, Normal Color, Warm Discharge Plan - Follow Up Plan Condition: FAIR Disposition: HOME/ ROUTINE
== END 2016-10-13 17:00 | disposition home or self-care (01) | DRG 74 ==
LOC: H.ER 03:23 → H.ERHOLD 06:17 → H.MEDSURG1 09:24 → H.TEL 10-10 11:40
PROVIDERS: ADMIT Internal Medicine; ATTEND Internal Medicine
DX: E11.43 Type 2 diabetes mellitus with diabetic autonomic (poly)neuropathy (principal); I11.0 Hypertensive heart disease with heart failure; I50.32 Chronic diastolic (congestive) heart failure; K31.84 Gastroparesis; Z79.4 Long term (current) use of insulin; G89.29 Other chronic pain; D64.9 Anemia, unspecified

== ENCOUNTER 2018-04-27 21:00 | Emergency (ER) | payer BC, OTHER ==
[2018-04-27 22:21] VITALS: O2SAT 100
--- NOTE | 2018-04-28 00:29 | ED PDOC ---
HPI: Neurologic - General Time Seen by Provider: 04/27/18 22:56 Chief Complaint (Nursing): GI Problem Source: patient - History of Present Illness Timing/Duration: 24 hours Severity: mild Allergies/Adverse Reactions: Allergies No Known Allergies Allergy (Verified 04/27/18 22:18) Home Medications: Ambulatory Orders Docusate [Colace] 100 mg PO BID 10/09/16 Insulin Degludec [Tresiba Flextouch U-100] 20 units SC HS 10/09/16 Insulin Lispro [Humalog Kwikpen U-100] See Protocol SC TID 10/09/16 Lisinopril [Zestril] 2.5 mg PO DAILY 10/09/16 Pregabalin [Lyrica] 100 mg PO BID 10/09/16 Ondansetron ODT [Zofran ODT] 4 mg PO Q8 PRN #12 odt 04/28/18 Additional Complaint(s): Hx of DM presenting with dizziness and vomiting, states yesterday had an eye procedure in which her eyes were dilated and had laser therapy for glaucoma, states that today she woke up with dizziness and followed up at the retina clinic and was told her eyes were normal. States that all day the dizziness has been there whenever she changes positions or lies down and is associated with vomiting. States that when she is sitting up and being still she has no symptoms. Denies headache, weakness, loss of function, fevers, neck stiffness, or any other symptoms. PMD: Dr. Marin Past Medical History Reviewed: Historical Data, Nursing Documentation, Vital Signs Vital Signs: Last Vital Signs Temp 98.2 F 04/27/18 22:18 Pulse 80 04/27/18 22:18 Resp 18 04/27/18 22:18 BP 160/79 H 04/27/18 22:18 Pulse Ox 100 04/27/18 22:18 - Medical History PMH: Diabetes, HTN Denies: HIV, Chronic Kidney Disease - Surgical History Surgical History: Back Surgery, (x 1) - Family History Family History: States: Unknown Family Hx - Home Medications Home Medications: Ambulatory Orders Medication Instructions Recorded Docusate [Colace] 100 mg PO BID 10/09/16 Insulin Degludec [Tresiba 20 units SC HS 10/09/16 Flextouch U-100] Insulin Lispro [Humalog Kwikpen See Protocol SC TID 10/09/16 U-100] Lisinopril [Zestril] 2.5 mg PO DAILY 10/09/16 Pregabalin [Lyrica] 100 mg PO BID 10/09/16 Ondansetron ODT [Zofran ODT] 4 mg PO Q8 PRN #12 odt 04/28/18 - Allergies Allergies/Adverse Reactions: Allergies Allergy/AdvReac Type Severity Reaction Status Date / Time No Known Allergies Allergy Verified 04/27/18 22:18 Review of Systems Gastrointestinal: Positive for: Nausea, Vomiting. Negative for: Abdominal Pain Neurological: Positive for: Dizziness Physical Exam - Reviewed Nursing Documentation Reviewed: Yes Vital Signs Reviewed: Yes - Physical Exam Appears: Positive for: Well, Non-toxic, No Acute Distress Head Exam: Positive for: ATRAUMATIC, NORMAL INSPECTION, NORMOCEPHALIC Skin: Positive for: Normal Color, Warm, DRY Eye Exam: Positive for: EOMI, Normal appearance, PERRL ENT: Positive for: Normal ENT Inspection Neck: Positive for: Normal, Painless ROM Cardiovascular/Chest: Positive for: Regular Rate, Rhythm Respiratory: Positive for: CNT, Normal Breath Sounds Gastrointestinal/Abdominal: Positive for: Normal Exam, Soft Back: Positive for: Normal Inspection Extremity: Positive for: Normal ROM Neurologic/Psych: Positive for: Alert, director of capital giving II-XII, Oriented, Cerebellar Tests (Normal), Gait (Normal). Negative for: Motor/Sensory Deficits, Aphasia - ECG O2 Sat by Pulse Oximetry: 100 Pulse Ox Interpretation: Normal Medical Decision Making Medical Decision MakinPM Patient presenting with dizziness after dilation and eye procedure --Very well appearing, normal vitals, nonfocal exam --Symptoms are not there at rest --Symptoms appear to be peripherally vertiginous --Will give meclizine and re-eval 1200AM --Patient reports relief --Very well appearing --Advised plenty of fliuds and rest --Patient worried about nausea returning, will give prescription for zofran --Advised followup with retina clinic and PMD monday --Well appearing, ambulatory, stable upon discharge Disposition - Clinical Impression Clinical Impression: Dizziness - Disposition Referrals: Lorne Fine MD [Family Provider] - Disposition: Routine/Home Disposition Time: 00:00 Condition: STABLE Prescriptions: Ondansetron ODT [Zofran ODT] 4 mg PO Q8 PRN #12 odt PRN Reason: Nausea/Vomiting Instructions: Vertigo (a Type of Dizziness) Forms: [employer] (Bangladeshi)
[2018-04-28 00:40] VITALS: BP 156/89; PULSE 72; RESP 17; TEMP 98.3
== END 2018-04-28 00:40 | disposition home or self-care (01) ==
LOC: H.ER 21:00
DX: R42 Dizziness and giddiness (principal); E11.9 Type 2 diabetes mellitus without complications; I10 Essential (primary) hypertension; Z79.899 Other long term (current) drug therapy

== ENCOUNTER 2018-08-10 10:22 | Emergency (ER) | payer MEDICARE, OTHER ==
[2018-08-10 10:41] VITALS: RESP 18; O2SAT 99; BMI 22.6
--- NOTE | 2018-08-10 11:54 | ED PDOC ---
HPI: CCC, URI, Sore Throat Time Seen by Provider: 08/10/18 11:01 Chief Complaint (Nursing): ENT Problem Chief Complaint (Provider): Right ear fullness History Per: Patient History/Exam Limitations: no limitations Onset/Duration Of Symptoms: Hrs Current Symptoms Are (Timing): Still Present Location Of Pain: Ear(s) Additional Complaint(s): 53yo female with history of hypertension, comes to ER reporting right ear fullness since last nigt. Patient states she feels as if "my ear can't pop." Otherwise, deneis any headache, neck pain, fever, sore throat or other illnesses. She denies any ear discharge as well. Patient was evaluated by her PMD and referred to an ENT, has an appointment on Monday, but elected to come to ER today. PMD: Dr. Fine Past Medical History Reviewed: Historical Data, Nursing Documentation, Vital Signs Vital Signs: Last Vital Signs Temp 97.8 F 08/10/18 10:40 Pulse 86 08/10/18 10:40 Resp 18 08/10/18 10:40 BP 149/73 08/10/18 10:40 Pulse Ox 99 08/10/18 10:40 - Medical History PMH: Diabetes, HTN Denies: HIV, Chronic Kidney Disease - Surgical History Surgical History: Back Surgery, (x 1) - Family History Family History: States: Unknown Family Hx - Home Medications Home Medications: Ambulatory Orders Medication Instructions Recorded Docusate [Colace] 100 mg PO BID 10/09/16 Insulin Degludec [Tresiba 20 units SC HS 10/09/16 Flextouch U-100] Insulin Lispro [Humalog Kwikpen See Protocol SC TID 10/09/16 U-100] Lisinopril [Zestril] 2.5 mg PO DAILY 10/09/16 Pregabalin [Lyrica] 100 mg PO BID 10/09/16 Ondansetron ODT [Zofran ODT] 4 mg PO Q8 PRN #12 odt 04/28/18 Azithromycin [Zithromax] 250 mg PO DAILY #6 tab 08/10/18 Ibuprofen [Motrin Tab] 600 mg PO Q6 PRN #15 tab 08/10/18 Loratadine [Claritin] 10 mg PO DAILY #12 tab 08/10/18 - Allergies Allergies/Adverse Reactions: Allergies Allergy/AdvReac Type Severity Reaction Status Date / Time No Known Allergies Allergy Verified 04/27/18 22:18 Review of Systems Constitutional: Negative for: Fever ENT: Positive for: Ear Pain. Negative for: Ear Discharge, Throat Pain Musculoskeletal: Negative for: Neck Pain Physical Exam - Reviewed Nursing Documentation Reviewed: Yes Vital Signs Reviewed: Yes - Physical Exam Appears: Positive for: No Acute Distress Head Exam: Positive for: NORMAL INSPECTION Skin: Positive for: Normal Color Eye Exam: Positive for: EOMI, PERRL ENT: Positive for: TM Is/Are (left TM normal; right TM with effusion, dull and bulging, no erythema. Right ear canal normal.). Negative for: Pharyngeal Erythema, Tonsillar Exudate, Tonsillar Swelling Neck: Positive for: Supple Cardiovascular/Chest: Negative for: Tachycardia Respiratory: Negative for: Respiratory Distress Neurological/Psych: Positive for: Awake, Alert - ECG O2 Sat by Pulse Oximetry: 99 (RA) Pulse Ox Interpretation: Normal Medical Decision Making Medical Decision Making: Patient to be treated with outpatient antibiotics. Patient advised on caution with decongestant use due to her history of elevated blood pressure. Patient advised to follow up with ENT as scheduled (Dr. Pa). Scribe Attestation: Documented by Liane Quezada acting as a scribe for lA Downey DO. Provider Scribe Attestation: All medical record entries made by the Scribe were at my direction and personally dictated by me. I have reviewed the chart and agree that the record accurately reflects my personal performance of the history, physical exam, medical decision making, and the department course for this patient. I have also personally directed, reviewed, and agree with the discharge instructions and disposition. Disposition - Clinical Impression Clinical Impression: Middle ear effusion - Disposition Referrals: Janes Pa MD [Staff Provider] - Disposition: Routine/Home Disposition Time: 11:30 Condition: STABLE Additional Instructions: See ENT doctor if symptoms persist. Use medications as instructed. Caution with OTC decongestants with history of high blood pressure. Prescriptions: Azithromycin [Zithromax] 250 mg PO DAILY #6 tab Ibuprofen [Motrin Tab] 600 mg PO Q6 PRN #15 tab PRN Reason: Pain, Moderate (4-7) Loratadine [Claritin] 10 mg PO DAILY #12 tab Instructions: Ear Infections (Otitis Media), Eustachian Tube Problems (DC) Forms: [employer] (Kinyarwanda)
[2018-08-10 13:08] VITALS: BP 152/84; PULSE 83; TEMP 98.2
== END 2018-08-10 12:50 | disposition home or self-care (01) ==
LOC: H.ER 10:22
DX: H74.8X3 Other specified disorders of middle ear and mastoid, bilateral (principal); E11.9 Type 2 diabetes mellitus without complications; I10 Essential (primary) hypertension